=== PATIENT | female | born 1965 | race Two or more races ===

== ENCOUNTER 2021-06-09 11:37 | Emergency (ER) | payer MEDICAID, OTHER ==
[~2021-06-09] VITALS: Ht 170.2 cm; Wt 72.6 kg
[2021-06-09 11:37] VITALS: BP 140/105
[2021-06-09 12:52] LABS: Basophils # (auto) 0.1 10 ^3/uL (0-0.2); Basophils % (auto) 0.5 % (0.0-2.0); Eosinophils # (auto) 0.2 10 ^3/uL (0-0.8); Eosinophils % (auto) 1.9 % (0.0-7.0); Hematocrit 40.6 % (36.0-46.0); Hemoglobin 13.5 g/dL (12.2-16.2); Lymphocytes # (auto) 2.8 10 ^3/uL (0.4-5.4); Lymphocytes % (auto) 26.9 % (10.0-50.0); Mean Corpuscular Hemoglobin 28.8 pg (28.0-32.0); Mean Corpuscular Hgb Conc. 33.2 g/dL (32.0-36.0); Mean Corpuscular Volume 86.7 fL (80.0-100.0); Monocytes # (auto) 0.7 10 ^3/uL (0-1.3); Monocytes % (auto) 6.7 % (0.0-12.0); Neutrophils # (auto) 6.6 10 ^3/uL (1.6-8.6); Nucleated Red Blood Cells % 0.1 %; Red Blood Cells 4.69 10^6/uL (4.0-5.20); Red Cell Distribution Width 12.5 % (11.8-14.3); White Blood Cell 10.4 10^3/uL (4.4-10.8)
[2021-06-09 13:09] LABS: Albumin 3.8 g/dL (3.4-5.0); Calcium 8.9 mg/dL (8.5-10.1); Potassium 4.4 mmol/L (3.5-5.1)
[2021-06-09 13:15] LABS: Bilirubin, Total 0.3 mg/dL (0.2-1.0); Total Protein 7.3 g/dL (6.4-8.2)
[2021-06-09] MEDS ORDERED: traMADol HCL 50 MG TAB PO ONE (14:00)
[2021-06-09 14:05] LABS: Urine Bacteria NONE SEEN /hpf (None Seen); Urine Blood Negative /uL (Negative); Urine Specific Gravity 1.012 (1.001-1.035); Urine WBC <1 /hpf (0 - 5)
[2021-06-09] MEDS ORDERED: TRAM-297 PO (14:11)
== END 2021-06-09 16:15 | disposition home or self-care (01) ==
LOC: ER 11:37
DX: R10.32 Left lower quadrant pain (principal); Z90.49 Acquired absence of other specified parts of digestive tract
CPT/HCPCS: 36415; 74176; 80053; 81001; 82150; 83690; 85025; 93005

== ENCOUNTER 2021-06-12 21:31 | Inpatient (IN) | payer MEDICAID ==
[~2021-06-12] VITALS: Ht 170.2 cm; Wt 79.0 kg
[~2021-06-12 21:31] MED LIST: TRAM-297 PO
[2021-06-12] MEDS ORDERED: MORPHINE SULFATE 4 MG/ML SYR/VIAL IV ONE (22:00)
[2021-06-12] MEDS ORDERED: SODIUM CHLORIDE 0.9% 1,000 ML IV ONE (22:00)
[2021-06-12] MEDS ORDERED: ONDANSETRON HCL 4 MG/2 ML VIAL IV ONE (22:00)
[2021-06-12] MEDS ORDERED: IOHEXOL 300 MG/ML 100ML BOTTLE IJ ONE (22:05)
[2021-06-12 22:13] LABS: Urine Bacteria NONE SEEN /hpf (None Seen); Urine Blood Negative /uL (Negative); Urine Specific Gravity 1.016 (1.001-1.035); Urine WBC 1 /hpf (0 - 5)
[2021-06-12 23:32] LABS: Basophils # (auto) 0 10 ^3/uL (0-0.2); Basophils % (auto) 0.5 % (0.0-2.0); Eosinophils # (auto) 0.1 10 ^3/uL (0-0.8); Eosinophils % (auto) 1.2 % (0.0-7.0); Hematocrit 36.3 % (36.0-46.0); Hemoglobin 12.3 g/dL (12.2-16.2); Lymphocytes # (auto) 2.8 10 ^3/uL (0.4-5.4); Lymphocytes % (auto) 30.5 % (10.0-50.0); Mean Corpuscular Hemoglobin 29.2 pg (28.0-32.0); Mean Corpuscular Hgb Conc. 33.8 g/dL (32.0-36.0); Mean Corpuscular Volume 86.6 fL (80.0-100.0); Monocytes # (auto) 0.8 10 ^3/uL (0-1.3); Monocytes % (auto) 9.2 % (0.0-12.0); Neutrophils # (auto) 5.3 10 ^3/uL (1.6-8.6); Neutrophils % (auto) 58.6 % (37.0-80.0); Red Blood Cells 4.19 10^6/uL (4.0-5.20); Red Cell Distribution Width 12.6 % (11.8-14.3)
[2021-06-12 23:50] LABS: BUN/Creatinine Ratio 27.5; Calcium 8.5 mg/dL (8.5-10.1); Potassium 3.8 mmol/L (3.5-5.1)
[2021-06-13] MEDS ORDERED: MORPHINE SULFATE 4 MG/ML SYR/VIAL IV ONE (01:45)
[2021-06-13] MEDS ORDERED: MORPHINE SULFATE INJECTION 2 MG/ML SYRG IV PRN ×4 (11:00→13:15)
[2021-06-13] MEDS ORDERED: NITROGLYCERIN 0.4 MG SL TAB SL PRN ×2 (11:00→13:15)
[2021-06-13] MEDS ORDERED: ONDANSETRON HCL 4 MG/2 ML VIAL IV PRN (11:00)
[2021-06-13] MEDS ORDERED: ACETAMINOPHEN 325 MG TAB PO PRN (13:15)
[2021-06-13] MEDS ORDERED: METOCLOPRAMIDE HCL 5MG/ml INJ 2ml VIAL IV PRN (13:15)
[2021-06-13] MEDS ORDERED: ALUM & MAG HYDROX-SIMETH LIQ(MAALOX) 30 ML PO PRN (13:15)
[2021-06-13] MEDS ORDERED: SODIUM CHLORIDE 0.9% 1,000 ML IV ONE (13:15)
[2021-06-13] MEDS ORDERED: TEMAZEPAM 15 MG CAP PO PRN (13:15)
[2021-06-13 15:18] LABS: Cholesterol 184 mg/dL (< 200); HDL Cholesterol 69 mg/dL (40-59); LDL Cholesterol 98 mg/dL (< 100); Triglycerides 104 mg/dL (< 150)
[2021-06-13] MEDS: SODIUM CHLORIDE 0.9% 1,000 ML IV SCH (15:31)
[2021-06-13 22:00] VITALS: BP 128/79
[2021-06-14] MEDS: HYDROcodone-ACET 5/325MG TAB PO PRN ×4 (03:53→20:17)
[2021-06-14 05:00] VITALS: BP 106/69
[2021-06-14 05:22] LABS: Alcohol, Urine < 3.0 mg/dL (0-10); Amphetamine Screen, Urine NEGATIVE (NEGATIVE); Barbiturate Scree,Urine NEGATIVE (NEGATIVE); Benzodiazephine Screen, Urine NEGATIVE (NEGATIVE); Cannabinoid Screen, Urine NEGATIVE (NEGATIVE); Cocaine Screen, Urine NEGATIVE (NEGATIVE); Opiate Scree,Urine NEGATIVE (NEGATIVE); Phencyclidine Screen, Urine NEGATIVE (NEGATIVE)
[2021-06-14 05:40] LABS: Urine Bacteria NONE SEEN /hpf (None Seen); Urine Blood Negative /uL (Negative); Urine Specific Gravity 1.019 (1.001-1.035); Urine WBC 2 /hpf (0 - 5)
[2021-06-14] MEDS: SODIUM CHLORIDE 0.9% 1,000 ML IV SCH ×2 (05:55→22:59)
[2021-06-14 06:08] LABS: INR 1.05 (0.9-1.15); Partial Thromboplastin Time 25.8 sec (23.6-33.0)
[2021-06-14 06:41] LABS: Potassium 3.7 mmol/L (3.5-5.1)
[2021-06-14 06:59] LABS: Albumin 3.2 g/dL (3.4-5.0); BUN/Creatinine Ratio 21.1; Bilirubin, Total 0.6 mg/dL (0.2-1.0); Calcium 8.2 mg/dL (8.5-10.1); Magnesium 2.9 mg/dL (1.6-2.6); Phosphorus 3.3 mg/dL (2.5-4.90); Total Protein 6.6 g/dL (6.4-8.2)
[2021-06-14 07:04] LABS: Basophils # (auto) 0.1 10 ^3/uL (0-0.2); Basophils % (auto) 0.8 % (0.0-2.0); Eosinophils # (auto) 0.1 10 ^3/uL (0-0.8); Eosinophils % (auto) 1.6 % (0.0-7.0); Hematocrit 36.6 % (36.0-46.0); Hemoglobin 12.3 g/dL (12.2-16.2); Lymphocytes # (auto) 2.4 10 ^3/uL (0.4-5.4); Lymphocytes % (auto) 32.2 % (10.0-50.0); Mean Corpuscular Hemoglobin 29.4 pg (28.0-32.0); Mean Corpuscular Hgb Conc. 33.6 g/dL (32.0-36.0); Mean Corpuscular Volume 87.4 fL (80.0-100.0); Monocytes # (auto) 0.7 10 ^3/uL (0-1.3); Monocytes % (auto) 9.2 % (0.0-12.0); Neutrophils # (auto) 4.1 10 ^3/uL (1.6-8.6); Neutrophils % (auto) 56.2 % (37.0-80.0); Nucleated Red Blood Cells % 0.1 %; Red Blood Cells 4.19 10^6/uL (4.0-5.20); Red Cell Distribution Width 12.5 % (11.8-14.3); White Blood Cell 7.4 10^3/uL (4.4-10.8)
[2021-06-14 09:00] VITALS: BP 99/63
[2021-06-14] MEDS: ENOXAPARIN SOD 40 MG/0.4 ML SYRINGE SC SCH ×2 (10:00→10:19)
[2021-06-14] MEDS ORDERED: GADOTERATE MEG 7.5 MMOL/15ml INJ (0.5MMOL/ml) IV ONE (12:55)
[2021-06-14 13:00] VITALS: BP 107/68
[2021-06-14 17:00] VITALS: BP 115/64
[2021-06-14] MEDS: DOCUSATE SOD 100 MG CAP PO PRN (20:17)
[2021-06-14 22:00] VITALS: BP 112/59
[2021-06-15] MEDS: DOCUSATE SOD 100 MG CAP PO PRN (04:05)
[2021-06-15 05:00] VITALS: BP 113/69
[2021-06-15 08:00] VITALS: BP 113/71
[2021-06-15 09:00] VITALS: BP 99/71
[2021-06-15] MEDS: ENOXAPARIN SOD 40 MG/0.4 ML SYRINGE SC SCH (10:00)
[2021-06-15 13:00] VITALS: BP 113/71
[2021-06-15] MEDS: SODIUM CHLORIDE 0.9% 1,000 ML IV SCH ×2 (15:15→21:37)
[2021-06-15] MEDS ORDERED: LACTULOSE 20Gm/30ML SOLN PO ONE (15:45)
[2021-06-15 17:00] VITALS: BP 113/75
[2021-06-15 22:00] VITALS: BP 106/80
[2021-06-16 05:00] VITALS: BP 100/57
[2021-06-16] MEDS ORDERED: TRAM50TA2 PO (08:51)
[2021-06-16 09:00] VITALS: BP 105/53
== END 2021-06-16 11:50 | disposition home or self-care (01) | DRG 663 ==
LOC: ER 21:32 → OVERFLOW 06-13 10:47 → CENTRAL 06-13 19:50
PROVIDERS: ADMIT Hospitalist; ATTEND Family Medicine
DX: D18.1 Lymphangioma, any site (principal); R19.09 Other intra-abdominal and pelvic swelling, mass and lump; Z20.822 Contact with and (suspected) exposure to COVID-19; Z90.49 Acquired absence of other specified parts of digestive tract; Z87.440 Personal history of urinary (tract) infections
CPT/HCPCS: 36415; 74183; 80048; 80053; 80061; 80307; 81001; 82105; 83036; 83735; 83880; 84100; 84484; 85025; 85379; 85610; 85730; 87040; 87086; 87426; 93005; 96361; 96374; 96375; G0378; J2405

== ENCOUNTER 2022-07-28 14:25 | Emergency (ER) | payer MEDICAID ==
[~2022-07-28] VITALS: Ht 170.2 cm; Wt 78.5 kg
[~2022-07-28 14:25] MED LIST changes: +TRAM50TA2 PO
[2022-07-28 14:34] VITALS: BP 121/77
[2022-07-28] MEDS ORDERED: IBUP800T27 PO (19:10)
[2022-07-28] MEDS ORDERED: KETOROLAC TROMETH 60MG/2ML VIAL IM ONE (19:15)
== END 2022-07-28 20:19 | disposition home or self-care (01) ==
LOC: ER 14:25
DX: G43.909 Migraine, unspecified, not intractable, without status migrainosus (principal); H92.01 Otalgia, right ear
CPT/HCPCS: 70450; 96372; 99285; J1885

== ENCOUNTER 2024-04-08 07:14 | Emergency (ER) | payer MEDICAID ==
[~2024-04-08] VITALS: Ht 170.2 cm; Wt 79.0 kg
[~2024-04-08 07:14] MED LIST changes: +IBUP-1456 PO
[2024-04-08 07:50] VITALS: BP 113/75; PULSE 76; RESP 20; TEMP 97.5; O2SAT 98
[2024-04-08 07:50] LABS: Urine Bacteria None Seen /hpf (None Seen)
[2024-04-08 08:03] LABS: Basophils # (auto) 0.1 10 ^3/uL (0-0.2); Basophils % (auto) 0.9 % (0.0-2.0); Eosinophils # (auto) 0.2 10 ^3/uL (0-0.8); Eosinophils % (auto) 2.4 % (0.0-7.0); Hematocrit 44.2 % (36.0-46.0); Hemoglobin 14.8 g/dL (12.2-16.2); Lymphocytes # (auto) 2.4 10 ^3/uL (0.4-5.4); Lymphocytes % (auto) 34.6 % (10.0-50.0); Mean Corpuscular Hemoglobin 29.6 pg (28.0-32.0); Mean Corpuscular Hgb Conc. 33.6 g/dL (32.0-36.0); Mean Corpuscular Volume 88.2 fL (80.0-100.0); Monocytes # (auto) 0.6 10 ^3/uL (0-1.3); Monocytes % (auto) 9.2 % (0.0-12.0); Neutrophils # (auto) 3.6 10 ^3/uL (1.6-8.6); Neutrophils % (auto) 52.9 % (37.0-80.0); Nucleated Red Blood Cells % 0.1 %; Platelet Count (auto) 215 10^3/uL (140-450); Red Blood Cells 5.01 10^6/uL (4.0-5.20); Red Cell Distribution Width 12.7 % (11.8-14.3); White Blood Cell 6.9 10^3/uL (4.4-10.8)
--- NOTE | 2024-04-08 08:07 | ED.PDOC ---
GI ASSESSMENT HPI Comments A 58 YEAR OLD FEMALE PRESENTS TO THE ED WITH COMPLAINT OF EPIGASTRIC PAIN, LOWER BACK PAIN, AND PAINFUL URINATION. PATIENT STATES SHE HAS BEEN EXPERIENCING EPIGASTRIC PAIN THAT RADIATES TO HER MIDDLE BACK FOR THE PAST 4 DAYS. PATIENT REPORTS HER PAIN IS WORSE WHEN EATING. PATIENT STATES SHE HAS ALSO HAD PAINFUL URINATION AND CONSTIPATION FOR THE PAST 4 DAYS. PATIENT NOTES SHE HAS ALSO BEEN EXPERIENCING LOWER BACK PAIN THAT RADIATES DOWN HER LEFT LEG FOR A LONG PERIOD OF TIME AND STATES THIS IS A CHRONIC ISSUE. PATIENT DENIES HEMATURIA, SADDLE ANESTHESIA, URINARY INCONTINENCE, BOWEL INCONTINENCE, FEVER, CHILLS, SHORTNESS OF BREATH, CHEST PAIN, NAUSEA, VOMITING, HEADACHE, OR OTHER COMPLAINTS. NO OTHER SYMPTOMS OR MODIFYING FACTORS AT THIS TIME. PATIENT IS ALERT, ORIENTED X 4, AND HAS STEADY GAIT. Chief Complaint: Abdominal Pain Time Seen by MD: 07:25 Primary Care Provider: GALI Reviewed Notes: Nurses Notes, Medications, Allergies Allergies: Coded Allergies: NO KNOWN ALLERGIES (Unverified , 06/09/21) Home Meds Active Scripts Gabapentin (Gabapentin) 300 Mg Cap, 1 CAP PO BID, #30 CAP Prov:AMI CANTU 04/08/24 Ibuprofen (Ibuprofen) 800 Mg Tab, 1 TAB PO TID, #30 TAB Prov:AMI CANTU 04/08/24 Lactulose (Lactulose) 10 Gm/15 Ml Denise, 30 ML PO BID, #300 ML Prov:AMI CANTU 04/08/24 Ibuprofen (Ibuprofen) 800 Mg Tab, 1 TAB PO TID PRN, #30 TAB 0 Refills Prov:DEBBIE HINKLE 07/28/22 Tramadol Hcl (Tramadol Hcl) 50 Mg Tab, 50 MG PO Q6HR, #20 TAB Prov:SU HATFIELD MD 06/16/21 Tramadol Hcl (Ultram) 50 Mg Tab, 50 MG PO Q8HP PRN, #20 Prov:DG JASMINE MD 06/09/21 Information Source: Patient Mode of Arrival: Ambulatory Timing: Days Duration: Since onset, Days Prehospital treatment: None Quality: Aching, Cramping, Colicky Vomitus: None Stool: Normal Severity: Moderate Recent: None Recent Hx of: None Pain Location: Epigastric, Other (BACK ) Modifying Factors: Nothing Associated sign and symptoms: Abdominal Pain Past Medical History Past Medical History (Other): CHRONIC LOW BACK PAIN Surgical History: Appendectomy 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 Family History Family History: Reviewed,noncontributory to illness Social History Smoker: Non-Smoker Alcohol: Denies ETOH Use Drugs: Denies Drug Use Lives In: Home Constitutional: denies: chills, diaphoresis, fatigue, fever, malaise, sweats, weakness, others EENTM: denies: blurred vision, double vision, ear bleeding, ear discharge, ear drainage, ear pain, ear ringing, eye pain, eye redness, hearing loss, mouth pain, mouth swelling, nasal discharge, nose bleeding, nose congestion, nose p ain, photophobia, tearing, throat pain, throat swelling, voice changes, others Respiratory: denies: cough, hemoptysis, orthopnea, SOB at rest, shortness of breath, SOB with excertion, stridor, wheezing, others Cardiovascular: denies: chest pain, dizzy spells, diaphoresis, Dyspnea on exertion, edema, irregular heart beat, left arm pain, lightheadedness, palpitations, PND, syncope, others Gastrointestinal: reports: abdominal pain (EPIGASTRIC PAIN), constipated, nausea; denies: abdomen distended, blood streaked bowels, diarrhea, dysphagia, difficulty swallowing, hematemesis, melena, poor appetite, poor fluid intake, rectal bleeding, rectal pain, vomiting, others Genitourinary: reports: burning, dysuria; denies: abnormal vagina bleeding, dyspareunia, flank pain, frequency, hematuria, incontinence, pain, , vagina discharge, urgency, others Neurological: denies: dizziness, fainting, headache, left sided numbness, left sided weakness, numbness, paresthesia, pre-existing deficit, right sided numbness, right sided weakness, seizure, speech problems, tingling, tremors, weakness, others Musculoskeletal: reports: back pain (LOWER BACK PAIN THAT RADIATES DOWN LEFT LEG), muscle pain; denies: gout, joint pain, joint swelling, muscle stiffness, neck pain, others Integumetry: denies: bruises, change in color, change in hair/nails, dryness, laceration, lesions, lumps, rash, wounds, others Allergic/Immunocompromised: denies: Difficulty Healing, Frequent Infections, Hives, Itching, others Hematologic/Lymphatic: denies: anemia, blood clots, easy bleeding, easy b ruising, swollen glands, others Endocrine: denies: excessive hunger, excessive sweating, excessive thirst, excessive urination, flushing, intolerance to cold, intolerance to heat, unexplained weight gain, unexplained weight loss, others Psychiatric: denies: anxiety, bipolar disorder, depression, hopeless, panic disorder, schizophrenia, sleepless, suicidal, others All Other Systems: Reviewed and Negative Physical Exam General Appearance: Mild Distress HEENT: Normal ENT Inspection, PERRL/EOMI, Pharynx Normal, TMs Normal Neck: Full Range of Motion, Non-Tender, Normal, Normal Inspection Respiratory: Chest Non-Tender, Lungs Clear, No Accessory Muscle Use, No Respiratory Distress, Normal Breath Sounds Cardiovascular: No Edema, No JVD, No Murmur, No Gallop, Normal Peripheral Pulses, Regular Rate/Rhythm Breast Exam: Deferred Gastrointestinal: Epigastric, No Organomegaly, No Pulsatile Mass, Normal Bowel Sounds, Soft, Tenderness (EPIGASTRIC, NO GUARDING AND REBOUND TENDERNESS. ) Genitalia: Deferred Pelvic: Deferred Rectal: Normal rectal tone (NO HEMORRHOIDS AND FISSURES. ) Extremities: No calf tenderness, Normal capillary refill, Normal inspection, Normal range of motion, Non-tender, No pedal edema Musculoskeletal : Location: Bilateral Extremity Location: Back Apperance: Tenderness: Moderate (MUSCLE SPASM ON LOW BACK, NO BONY TENDERNESS, SWELLING AND DEFORMITY. ) Neurologic: Alert, turntable operator II-XII nml as Tested, No Motor Deficits, Normal Affect, Normal Mood, No Sensory Deficits Cerebellar Function: Normal Reflexes: Normal Skin: Dry, Normal Color, Warm Peripheral Pulses: 2+ carotid (R), 2+ carotid (L), 2+ dorsalis pedis (R), 2+ dorsalis pedis (L) Lymphatic: No Adenopathy Was a procedure done? Was a procedure done?: No GI differential Dx Differential Diagnosis: Cholecystitis, Constipation, Gastritis/PUD, Inflammatory BD, Pancreatitis, UTI, Viral X-Ray, Labs, Meds, VS Vital Signs Date Time Temp Pulse Resp B/P (MAP) Pulse Ox O2 Delivery O2 Flow Rate FiO2 04/08/24 07:50 76 20 98 04/08/24 07:50 97.5 76 20 113/75 (88) 98 97.5 04/08/24 07:34 97.5 76 20 113/75 (88) 98 04/08/24 07:27 79 Lab Test 04/08/24 07:50 04/08/24 07:46 Range/Units Urine Color Light-yellow Yellow Urine Clarity Clear Clear Urine pH 6.5 5.0-9.0 Urine Specific [place] 1.013 1.001-1.035 Urine Protein Negative Negative Urine Ketones Negative Negative Urine Blood Negative Negative /uL Urine Nitrite Negative Negative Urine Bilirubin Negative Negative Urine Urobilinogen Normal Negative mg/dL Urine Leukocyte Esterase Negative Negative /uL Urine RBC 1 0 - 4 /hpf Urine WBC <1 0 - 5 /hpf Urine Squamous Epithelial Cells Few <5 /hpf Urine Bacteria None seen None Seen /hpf Urine Glucose Normal Normal mg/dL White Blood Count 6.9 4.4-10.8 10^3/uL Red Blood Count 5.01 4.0-5.20 10^6/uL Hemoglobin 14.8 12.2-16.2 g/dL Hematocrit 44.2 36.0-46.0 % Mean Corpuscular Volume 88.2 80.0-100.0 fL Mean Corpuscular Hemoglobin 29.6 28.0-32.0 pg Mean Corpuscular Hemoglobin Concent 33.6 32.0-36.0 g/dL Red Cell Distribution Width 12.7 11.8-14.3 % Platelet Count 215 140-450 10^3/uL Mean Platelet Volume 7.3 6.9-10.8 fL Neutrophils (%) (Auto) 52.9 37.0-80.0 % Lymphocytes (%) (Auto) 34.6 10.0-50.0 % Monocytes (%) (Auto) 9.2 0.0-12.0 % Eosinophils (%) (Auto) 2.4 0.0-7.0 % Basophils (%) (Auto) 0.9 0.0-2.0 % Neutrophils # (Auto) 3.6 1.6-8.6 10 ^3/uL Lymphocytes # (Auto) 2.4 0.4-5.4 10 ^3/uL Monocytes # (Auto) 0.6 0-1.3 10 ^3/uL Eosinophils # (Auto) 0.2 0-0.8 10 ^3/uL Basophils # (Auto) 0.1 0-0.2 10 ^3/uL Nucleated Red Blood Cells 0.1 % Sodium Level 142 136-145 mmol/L Potassium Level 4.3 3.5-5.1 mmol/L Chloride Level 108 H 98-107 mmol/L Carbon Dioxide Level 28 20-31 mmol/L Anion Gap 6 5-15 Blood Urea Nitrogen 15 9-23 mg/dL Creatinine 0.78 0.550-1.02 mg/dL Glomerular Filtration Rate Calc 89 >90 mL/min BUN/Creatinine Ratio 19.2 10.0-20.0 Serum Glucose 68 L 74-106 mg/dL Calcium Level 10.4 8.7-10.4 mg/dL Total Bilirubin 0.6 0.2-1.0 mg/dL Aspartate Amino Transferase (AST) 18 13-40 U/L Alanine Aminotransferase (ALT) 27 7-40 U/L Alkaline Phosphatase 107 46-116 U/L Total Protein 7.7 5.7-8.2 g/dL Albumin 4.5 3.2-4.8 g/dL Lipase 57 H 12-53 U/L Current Medications Medications (Trade) Dose Ordered Sig/Gisselle Route Start Time Stop Time Status Last Admin Ketorolac Tromethamine (Toradol Injection) 60 mg ONCE ONCE IM 04/08/24 08:45 04/08/24 08:46 DC 04/08/24 08:38 Lactulose 60 ml ONCE ONCE PO 04/08/24 09:15 04/08/24 09:16 DC 04/08/24 09:17 INDICATION: EPIGASTRIC PAIN TECHNIQUE: Multiple real-time sonographic images of the abdomen were obtained. COMPARISON: CT of the abdomen pelvis dated 06/12/2021 FINDINGS: The liver is homogenous in echogenicity. The liver measures 16.4 cm. No intrahepatic biliary ductal dilatation is noted. Patent hepatic and portal vasculature with appropriate waveforms. The gallbladder wall measures 0.1 cm and is unremarkable. No gallstones or sludge is seen. The common duct measures 0.7 cm and is unremarkable. No filling defect. No pericholecystic fluid is noted. Negative sonographic armenta's sign. The right kidney measures 9.9 cm. No hydronephrosis. The left kidney measures 11.1 cm. Mild left hydronephrosis. The spleen not imaged. The pancreas is not well visualized due to obscuration from bowel gas. The visualized portions of the IVC and aorta are grossly unremarkable. IMPRESSION: 1. Mild left hydronephrosis. No obstructing stone. 2. Prominent common bile duct without evidence of stone. MRCP may be obtained for further evaluation if clinically warranted. ATED BY: CYNDIE LOZANO MD DICTATED DATE/TIME: 04/08/24840 SIGNED BY: CYNDIE LOZANO MD SIGNED DATE/TIME: 04/08/24840 CC: PATIENT: ALFREDO YORK ACCT: [id number] UNIT: [id number] : 1965 LOC: ER ROOM / BED: / AGE / SEX: 58 / F ADM STATUS: DEP ER SERVICE 5 ORDERING PHYSICIAN: AMI CANTU PROCEDURE(s): KUB - KUB ABDOMEN SINGLE VIEW REASON: CONSTIPATION ORDER NUMBER(s): [id number], ACCESSION NUMBER(s): [id number] Date: 04/08/2024 09:04 AM Examination: XY KUB ABDOMEN SINGLE VIEW History: CONSTIPATION Comparison: None TECHNIQUE: Frontal views of the abdomen was obtained. FINDINGS: Bowel gas pattern is unremarkable. Moderate stool burden The lung bases are unremarkable. No acute osseous abnormality identified. IMPRESSION: Nonobstructive bowel gas pattern. Moderate stool burden. ATED BY: RANDALL LIVINGSTON MD DICTATED DATE/TIME: 04/08/24928 SIGNED BY: RANDALL LIVINGSTON MD SIGNED DATE/TIME: 04/08/24928 CC: X-Ray, Labs, Meds, VS Comment LABS ORDERED: CBC, CMP, UA, LIPASE REVIEWED AND INTERPRETED RESULTS: NORMAL TREATMENT: TORADOL 60 MG IM AND LACTULOSE 60ML PO XR ABDOMEN (KUB): [INTERPRETED BY ME. ACUTE CONSTIPATION VISUALIZED. NO OBSTRUCTION SEEN. PENDING RADIOLOGY REVIEW.] Images Reviewed?: Images reviewed and evaluated by me Time of 1ST Reevaluation: 09:30 Reevaluation 1ST: Improved Patient Education/Counseling: Diagnosis, Treatment, Need For Follow Up Family Education/Counseling: Diagnosis, Treatment, Need For Follow Up Medical Screening: No EMC Exist At This Time Departure 1 Departure Time of Disposition: :30 Impression: Primary Impression: Acute constipation Additional Impression: Left-sided low back pain with sciatica Qualified Codes: M54.42 - Lumbago with sciatica, left side; G89.29 - Other chronic pain Disposition: 01 HOME / SELF CARE / HOMELESS Condition: Stable Additional Instructions: FOLLOW-UP WITH PCP IN 1 TO 2 DAYS. TAKE MEDICATIONS PRESCRIBED. RETURN TO ED FOR ANY NEW OR WORSENING SYMPTOMS. e-Prescriptions Gabapentin (Gabapentin) 300 Mg Cap 1 CAP PO BID, #30 CAP Prov: AMI CANTU 04/08/24 Ibuprofen (Ibuprofen) 800 Mg Tab 1 TAB PO TID, #30 TAB Prov: AMI CANTU 04/08/24 Lactulose (Lactulose) 10 Gm/15 Ml Denise 30 ML PO BID, #300 ML Prov: AMI CANTU 04/08/24 Discharged With: Self Critical Care Note Critical Care Time?: No Stability Stability form required: No I personally scribed for AMI CANTU ([email or web address]) on 04/08/24 at 08:06. Electronically submitted by Reynaldo James ([employer]). I personally scribed for AMI CANTU ([email or web address]) on 04/08/24 at 08:58. Electronically submitted by Reynaldo James ([employer]). I personally scribed for AMI CANTU ([email or web address]) on 04/08/24 at 09:14. Electronically submitted by Reynaldo James ([employer]). I personally scribed for AMI CANTU ([email or web address]) on 04/08/24 at 09:29. Electronically submitted by Reynaldo James ([employer]). AMI CANTU Apr 08, 2024 08:06
[2024-04-08 08:13] LABS: Urine Blood Negative /uL (Negative); Urine Clarity Clear (Clear); Urine Color Light-Yellow (Yellow); Urine Protein, UAD Negative (Negative); Urine Specific Gravity 1.013 (1.001-1.035); Urine Urobilinogen Normal (Negative); Urine WBC <1 /hpf (0 - 5); Urine pH 6.5 (5.0-9.0)
[2024-04-08 08:17] LABS: Alanine Aminotransferase 27 U/L (7-40); Albumin 4.5 g/dL (3.2-4.8); Alkaline Phosphatase 107 U/L (46-116); Anion Gap 6 (5-15); Aspartate Aminotransferase 18 U/L (13-40); BUN/Creatinine Ratio 19.2 (10.0-20.0); Blood Urea Nitrogen 15 mg/dL (9-23); Calcium 10.4 mg/dL (8.7-10.4); Carbon Dioxide 28 mmol/L (20-31); Chloride 108 mmol/L (98-107); Glucose 68 mg/dL (74-106); Potassium 4.3 mmol/L (3.5-5.1); Sodium 142 mmol/L (136-145)
[2024-04-08 08:18] LABS: Bilirubin, Total 0.6 mg/dL (0.2-1.0); Total Protein 7.7 g/dL (5.7-8.2)
[2024-04-08] MEDS: KETOROLAC TROMETH 60MG/2ML VIAL IM ONE (08:38)
--- NOTE | 2024-04-08 08:44 | DVH ---
INDICATION: EPIGASTRIC PAIN TECHNIQUE: Multiple real-time sonographic images of the abdomen were obtained. COMPARISON: CT of the abdomen pelvis dated 06/12/2021 FINDINGS: The liver is homogenous in echogenicity. The liver measures 16.4 cm. No intrahepatic bilia ry ductal dilatation is noted. Patent hepatic and portal vasculature with appropriate waveforms. The gallbladder wall measures 0.1 cm and is unremarkable. No gallstones or sludge is seen. The com mon duct measures 0.7 cm and is unremarkable. No filling defect. No pericholecystic fluid is noted. Negative sonographic armenta's sign. The right kidney measures 9.9 cm. No hydronephrosis. The left kidney measures 11.1 cm. Mild left hy dronephrosis. The spleen not imaged. The pancreas is not well visualized due to obscuration from bowel gas. The visualized portions of the IVC and aorta are grossly unremarkable. IMPRESSION: 1. Mild left hydronephrosis. No obstructing stone. 2. Prominent common bile duct without evidence of stone. MRCP may be obtained for further evaluation if clinically warranted.
[2024-04-08] MEDS ORDERED: LACT10SO3 PO (09:13)
[2024-04-08] MEDS ORDERED: GABA-1250 PO (09:13)
[2024-04-08] MEDS ORDERED: IBUP-1456 PO (09:13)
[2024-04-08 09:16] LABS: Lipase 57 U/L (12-53)
[2024-04-08] MEDS: LACTULOSE 20Gm/30ML SOLN PO ONE (09:17)
--- NOTE | 2024-04-08 09:32 | DVH ---
Date: 04/08/2024 09:04 AM Examination: XY KUB ABDOMEN SINGLE VIEW History: CONSTIPATION Comparison: None TECHNIQUE: Frontal views of the abdomen was obtained. FINDINGS: Bowel gas pattern is unremarkable. Moderate stool burden The lung bases are unremarkable. No acute osseous abnormality identified. IMPRESSION: Nonobstructive bowel gas pattern. Moderate stool burden.
--- NOTE | 2024-04-11 09:18 | ECG ---
[facility] Test Date: 2024-04-08 Test Time: 07:27:31 Pat Name: ALFREDO YORK Department: ER Room: Gender: F Electrical Products Engineer: ILYA : 1965 Requested By: AMI CANTU Order Number: [id number] Reading MD: Sebastian Falcon Measurements Intervals [place] Rate: 79 P: 54 OK: 151 QRS: 62 QRSD: 59 T: -14 QT: 504 QTc: 579 Interpretive Statements Sinus rhythm Low voltage, precordial leads Borderline T wave abnormalities Prolonged QT interval Electronically Signed On 04-12-2024 8:14:57 PST by Sebastian Falcon Please click the below link to view image of tracing.
== END 2024-04-08 09:23 | disposition home or self-care (01) ==
LOC: ER 07:18
DX: M54.42 Lumbago with sciatica, left side (principal); K59.00 Constipation, unspecified; Z90.49 Acquired absence of other specified parts of digestive tract; Z79.1 Long term (current) use of non-steroidal anti-inflammatories (NSAID); Z79.899 Other long term (current) drug therapy
CPT/HCPCS: 36415; 74018; 76705; 80053; 81001; 83690; 85025; 96372; 99285; J1885